=== PATIENT | male | born 2000 | race Hispanic/Latino ===

== ENCOUNTER 2024-07-30 11:45 | Inpatient (IN) | payer OTHER ==
[~2024-07-30] VITALS: Ht 165.1 cm; Wt 70.0 kg
[2024-07-30 12:24] LABS: HEMATOCRIT 42.8 % (42.0-52.0); HEMOGLOBIN 14.6 g/dl (13.5-17.5); MEAN CORPUSCULAR HEMOGLOBIN 29.7 pg (27.0-33.0); MEAN CORPUSCULAR HGB CONC 34.1 g/dl (32.0-36.5); MEAN CORPUSCULAR VOLUME 87.2 fl (80.0-96.0); PLATELET COUNT, AUTOMATED 272 10^3/uL (150-450); RED BLOOD COUNT 4.91 10^6/uL (4.30-6.10); WHITE BLOOD COUNT 7.3 10^3/uL (4.0-10.0)
[2024-07-30 12:46] LABS: AMPHETAMINES LEVEL URINE NEGATIVE (NEGATIVE); BARBITURATES URINE NEGATIVE (NEGATIVE); BENZODIAZEPINES URINE NEGATIVE (NEGATIVE); COCAINE METABOLITE URINE NEGATIVE (NEGATIVE); METHADONE URINE NEGATIVE (NEGATIVE); OPIATES URINE NEGATIVE (NEGATIVE); PHENCYCLIDINE URINE NEGATIVE (NEGATIVE)
[2024-07-30 12:47] LABS: CANNABINOIDS URINE POSITIVE (NEGATIVE)
[2024-07-30 12:49] LABS: ETHYL ALCOHOL (ETHANOL) < 0.003 % (0.000-0.010)
[2024-07-30 12:51] LABS: ALBUMIN 4.5 G/DL (3.2-5.2); ALKALINE PHOSPHATASE 96 U/L (40-129); ALT/SGPT 42 U/L (7.0-40); AST/SGOT 76 U/L (<34); BILIRUBIN,DIRECT 0.2 MG/DL (<0.4); BILIRUBIN,TOTAL 0.7 MG/DL (0.3-1.2); BLOOD UREA NITROGEN 16 MG/DL (9-23); CARBON DIOXIDE LEVEL 27 MMOL/L (20-31); CHLORIDE LEVEL 103 MMOL/L (98-107); CREATININE FOR GFR 0.88 MG/DL (0.70-1.30); GLOMERULAR FILTRATION RATE > 60.0 (>60); GLUCOSE, FASTING 111 MG/DL (60-100); POTASSIUM SERUM 4.2 MMOL/L (3.5-5.1); SALICYLATE LEVEL < 3.0 MG/DL (<30); SODIUM LEVEL 138 MMOL/L (136-145); TOTAL PROTEIN 7.7 G/DL (5.7-8.2)
[2024-07-30 12:53] LABS: THYROID STIMULATING HORMONE 0.414 uIU/ML (0.55-4.78)
[2024-07-30] MEDS ORDERED: HOME MED LIST COMPLETE! XX SCH (14:00)
[2024-07-30] MEDS ORDERED: MOM 30ML SUSPENSION UDC PO PRN (17:45)
[2024-07-30] MEDS ORDERED: diphenhydrAMINE 25MG CAP PO PRN (17:45)
[2024-07-30] MEDS ORDERED: ACETAMINOPHEN 325 MG TAB PO PRN (17:45)
[2024-07-30] MEDS ORDERED: MAALOX 30 ML SUSP *UDC PO PRN (17:45)
[2024-07-31 06:30] VITALS: BP 130/61; TEMP 96.9; O2SAT 99
[2024-07-31 15:26] VITALS: BP 142/75; TEMP 97.6; O2SAT 100
[2024-07-31 15:55] LABS: HEPATITIS B SURFACE ANTIGEN NEGATIVE (NEGATIVE)
[2024-07-31 16:16] LABS: HEPATITIS B CORE ANTIBODY IGM NEGATIVE (NEGATIVE); HEPATITIS C VIRUS ABY INDEX 0.02 INDEX (<0.8)
[2024-07-31] MEDS: traZODone 50 MG TAB PO PRN (21:58)
[2024-08-01 06:46] VITALS: BP 124/76; TEMP 98.6; O2SAT 99
[2024-08-01 15:32] VITALS: BP 132/67; TEMP 98.3; O2SAT 99
[2024-08-02 17:21] VITALS: BP 122/80; TEMP 97.6; O2SAT 100
[2024-08-03 07:02] VITALS: BP 131/73; O2SAT 99
[2024-08-03] MEDS ORDERED: TRAZ-252 PO (08:12)
[2024-08-03] MEDS ORDERED: ABIL1TAB11 PO (08:12)
== END 2024-08-03 10:35 | disposition home or self-care (01) | DRG 882 ==
LOC: EDBD 11:45 → M ED 11:45 → M ED INP 17:41 → M PSY 18:33
PROVIDERS: ADMIT Psychiatry & Neurology Neurology; ATTEND Psychiatry & Neurology Neurology
DX: F43.24 Adjustment disorder with disturbance of conduct (principal); F60.2 Antisocial personality disorder; F15.90 Other stimulant use, unspecified, uncomplicated; F12.90 Cannabis use, unspecified, uncomplicated; F10.90 Alcohol use, unspecified, uncomplicated; R45.850 Homicidal ideations; R74.01 Elevation of levels of liver transaminase levels; F41.1 Generalized anxiety disorder; F90.9 Attention-deficit hyperactivity disorder, unspecified type; Z88.6 Allergy status to analgesic agent; Z87.820 Personal history of traumatic brain injury; Z91.52 Personal history of nonsuicidal self-harm; Z91.51 Personal history of suicidal behavior

== ENCOUNTER 2024-09-09 15:04 | Inpatient (IN) | payer OTHER ==
[~2024-09-09] VITALS: Ht 165.1 cm; Wt 75.8 kg
[~2024-09-09 15:04] MED LIST: ABIL1TAB11 PO; TRAZ-252 PO
[2024-09-09] MEDS ORDERED: SERO1TAB PO (15:41)
[2024-09-09 15:53] LABS: HEMATOCRIT 41.6 % (42.0-52.0); HEMOGLOBIN 14.6 g/dl (13.5-17.5); MEAN CORPUSCULAR HEMOGLOBIN 30.5 pg (27.0-33.0); MEAN CORPUSCULAR HGB CONC 35.1 g/dl (32.0-36.5); PLATELET COUNT, AUTOMATED 344 10^3/uL (150-450); RED BLOOD COUNT 4.78 10^6/uL (4.30-6.10); WHITE BLOOD COUNT 12.7 10^3/uL (4.0-10.0)
[2024-09-09 16:19] LABS: AMPHETAMINES LEVEL URINE NEGATIVE (NEGATIVE); BARBITURATES URINE NEGATIVE (NEGATIVE); BENZODIAZEPINES URINE NEGATIVE (NEGATIVE); COCAINE METABOLITE URINE NEGATIVE (NEGATIVE); METHADONE URINE NEGATIVE (NEGATIVE); OPIATES URINE NEGATIVE (NEGATIVE); PHENCYCLIDINE URINE NEGATIVE (NEGATIVE)
[2024-09-09 16:20] LABS: ETHYL ALCOHOL (ETHANOL) 0.007 % (0.000-0.010)
[2024-09-09 16:22] LABS: ALBUMIN 3.9 G/DL (3.2-5.2); ALKALINE PHOSPHATASE 69 U/L (40-129); ALT/SGPT 40 U/L (7.0-40); AST/SGOT 45 U/L (<34); BILIRUBIN,DIRECT < 0.1 MG/DL (<0.4); BILIRUBIN,TOTAL 0.3 MG/DL (0.3-1.2); BLOOD UREA NITROGEN 11 MG/DL (9-23); CALCIUM LEVEL 8.9 MG/DL (8.5-10.1); CARBON DIOXIDE LEVEL 22 MMOL/L (20-31); CHLORIDE LEVEL 108 MMOL/L (98-107); CREATININE FOR GFR 1.18 MG/DL (0.70-1.30); GLOMERULAR FILTRATION RATE 87.3 (>60); GLUCOSE, FASTING 97 MG/DL (60-100); POTASSIUM SERUM 3.9 MMOL/L (3.5-5.1); SALICYLATE LEVEL < 3.0 MG/DL (<30); SODIUM LEVEL 142 MMOL/L (136-145); TOTAL PROTEIN 7.3 G/DL (5.7-8.2)
[2024-09-09 16:23] LABS: CANNABINOIDS URINE POSITIVE (NEGATIVE)
[2024-09-09 16:24] LABS: THYROID STIMULATING HORMONE 0.861 uIU/ML (0.55-4.78)
[2024-09-09] MEDS ORDERED: ABIL1TAB11 PO (17:48)
[2024-09-09] MEDS ORDERED: HOME MED LIST COMPLETE! XX SCH (17:50)
[2024-09-10 09:24] VITALS: BP 126/59; TEMP 97.8; O2SAT 99
[2024-09-10] MEDS ORDERED: OLANZapine 5 MG TAB PO PRN (13:10)
[2024-09-10] MEDS ORDERED: IBUPROFEN 400MG TAB PO PRN (13:10)
[2024-09-10] MEDS ORDERED: MOM 30ML SUSPENSION UDC PO PRN (13:10)
[2024-09-10] MEDS ORDERED: diphenhydrAMINE 25MG CAP PO PRN (13:10)
[2024-09-10] MEDS ORDERED: MAALOX 30 ML SUSP *UDC PO PRN (13:10)
[2024-09-10] MEDS ORDERED: ACETAMINOPHEN 325 MG TAB PO PRN (13:10)
[2024-09-10] MEDS: NICOTINE 21MG/24HR 1 EA TRANSDERMAL TD SCH (14:14)
[2024-09-10] MEDS ORDERED: QUEtiapine FUMARATE 50MG TAB PO SCH (21:00)
[2024-09-11 06:53] VITALS: BP 116/67; TEMP 98; O2SAT 100
[2024-09-11] MEDS ORDERED: NICOTINE POLACRILEX 2 MG GUM PO PRN (09:05)
[2024-09-11] MEDS: OLANZapine 5 MG TAB PO SCH (09:55)
[2024-09-11] MEDS ORDERED: MIRALAX *UNIT DOSE* 17GM PACKET PO PRN (14:15)
[2024-09-11] MEDS ORDERED: SENNA 8.6 MG TAB (SENOKOT) PO PRN (14:15)
[2024-09-11 16:00] VITALS: BP 134/65; TEMP 98; O2SAT 98
[2024-09-11] MEDS: traZODone 50 MG TAB PO PRN (20:25)
[2024-09-12 06:31] VITALS: BP 140/60; TEMP 97.8; O2SAT 97
[2024-09-12 14:30] VITALS: BP 146/79; TEMP 97.8; O2SAT 99
[2024-09-13 06:29] VITALS: BP 117/56; TEMP 97.4; O2SAT 100
[2024-09-13] MEDS ORDERED: TRAZ-252 PO (10:04)
[2024-09-13] MEDS ORDERED: MIRA33506 PO (10:04)
[2024-09-13] MEDS ORDERED: OLAN1TAB16 PO (10:04)
[2024-09-13] MEDS ORDERED: SENN18TA PO (10:04)
== END 2024-09-13 12:15 | disposition home or self-care (01) | DRG 885 ==
LOC: M ED 15:04 → M ED INP 09-10 08:53 → M PSY 09-10 09:29
PROVIDERS: ADMIT Psychiatry & Neurology Psychiatry; ATTEND Psychiatry & Neurology Psychiatry
DX: F29 Unspecified psychosis not due to a substance or known physiological condition (principal); R45.851 Suicidal ideations; F43.10 Post-traumatic stress disorder, unspecified; R45.850 Homicidal ideations; Z88.6 Allergy status to analgesic agent; K59.00 Constipation, unspecified; Z79.899 Other long term (current) drug therapy